=== PATIENT | female | born 1990 | race American Indian/Alaskan Native ===

== ENCOUNTER 2020-08-27 04:24 | Emergency (ER) | payer MEDICAID ==
[2020-08-27 04:52] VITALS: BP 134/81
[2020-08-27] MEDS ORDERED: IBUPROFEN 600 MG TAB PO ONE (07:29)
--- NOTE | 2020-08-27 07:33 | Emergency Department Report ---
ED General Adult HPI - General Chief complaint: Dental/Oral Stated complaint: MOUTH PAIN Time Seen by Provider: 08/27/20 07:28 Source: patient Mode of arrival: Ambulatory Limitations: No Limitations - History of Present Illness Initial comments: Patient complains of right lower lateral incisor or premolar area area toothache for several hours. She denies having a dentist or attempting to see 1. She seems to be referring an acute complaint. She does not report any fever or chills or difficulty with swallowing or opening her mouth. She has no other complaint. -: Gradual, hour(s) Location: mouth, left Radiation: non-radiation Quality: aching Consistency: intermittent Improves with: none Worsens with: none Associated Symptoms: denies other symptoms Treatments Prior to Arrival: none - Related Data Previous Rx's Medication Instructions Recorded Last Taken Type HYDROcodone/APAP 5-325 [[place] 1 each PO Q6HR PRN #5 tablet 08/27/20 Unknown Rx 5/325] Penicillin Vk [Veetids TAB] 250 mg PO QID #30 tablet 08/27/20 Unknown Rx Allergies Allergy/AdvReac Type Severity Reaction Status Date / Time No Known Allergies Allergy Verified 08/27/20 04:29 ED Review of Systems ROS: Stated complaint: MOUTH PAIN Other details as noted in HPI Constitutional: denies: chills, fever Eyes: denies: eye pain, vision change ENT: as per HPI. denies: ear pain, throat pain Respiratory: denies: cough, shortness of breath Cardiovascular: denies: chest pain, palpitations Endocrine: no symptoms reported Gastrointestinal: denies: abdominal pain, nausea, diarrhea Genitourinary: denies: urgency, dysuria Musculoskeletal: denies: back pain, arthralgia Skin: denies: rash, lesions Neurological: denies: headache, weakness, paresthesias Psychiatric: denies: anxiety, depression Hematological/Lymphatic: denies: easy bleeding, easy bruising ED Past Medical Hx - Past Medical History Previous Medical History?: Yes Hx Asthma: Yes - Surgical History Past Surgical History?: No - Social History Smoking Status: Never Smoker Substance Use Type: None - Medications Home Medications: Home Medications Medication Instructions Recorded Confirmed Last Taken Type HYDROcodone/APAP 5-325 [[place] 1 each PO Q6HR PRN #5 tablet 08/27/20 Unknown Rx 5/325] Penicillin Vk [Veetids TAB] 250 mg PO QID #30 tablet 08/27/20 Unknown Rx ED Physical Exam - General Limitations: No Limitations General appearance: alert, in no apparent distress - Head Head exam: Present: atraumatic, normocephalic - Eye Eye exam: Present: normal appearance - ENT ENT exam: Present: mucous membranes moist, other (Probably tooth #4 and 5 are grossly eroded. There is minimal gingival reaction there is no abscess formation) - Neck Neck exam: Present: normal inspection. Absent: tenderness, meningismus - Respiratory Respiratory exam: Absent: respiratory distress - Cardiovascular Cardiovascular Exam: Present: regular rate. Absent: gallop - GI/Abdominal GI/Abdominal exam: Present: normal bowel sounds. Absent: distended - Extremities Exam Extremities exam: Present: normal inspection - Back Exam Back exam: Present: normal inspection - Neurological Exam Neurological exam: Present: alert, oriented X3, CN II-XII intact. Absent: motor sensory deficit - Psychiatric Psychiatric exam: Present: normal affect, normal mood - Skin Skin exam: Present: warm, dry, intact, normal color. Absent: rash ED Course Vital Signs 08/27/20 04:33 Temperature 98.2 F Pulse Rate 65 Respiratory 16 Rate Blood Pressure 134/81 O2 Sat by Pulse 100 Oximetry Critical care attestation.: If time is entered above; I have spent that time in minutes in the direct care of this critically ill patient, excluding procedure time. ED Disposition Clinical Impression: Dentalgia, Gingivitis Disposition: DC-01 TO HOME OR SELFCARE Is pt being admited?: No Does the pt Need Aspirin: No Condition: Stable Instructions: Preventive Dental Care, Adult Additional Instructions: See dentist regarding further care. [facility] information provided. Rx as directed. Prescriptions: HYDROcodone/APAP 5-325 [[place] 5/325] 1 each PO Q6HR PRN #5 tablet PRN Reason: Pain Penicillin Vk [Veetids TAB] 250 mg PO QID #30 tablet Referrals: JAVIER BARDALES MD [Primary Care Provider] - 3-[address] [facility] [Provider Group] - 3-5 Days Time of Disposition: 07:36
== END 2020-08-27 08:44 | disposition home or self-care (01) ==
LOC: ED 04:24
DX: K08.89 Other specified disorders of teeth and supporting structures (principal); K05.10 Chronic gingivitis, plaque induced; J45.909 Unspecified asthma, uncomplicated; Z79.899 Other long term (current) drug therapy
CPT/HCPCS: 99282

== ENCOUNTER 2020-10-31 22:07 | Emergency (ER) | payer MEDICAID ==
[2020-11-01] MEDS ORDERED: dexAMETHasone 4 MG/ML VIAL PO ONE (06:14)
[2020-11-01] MEDS ORDERED: PENICILLIN G BENZATHINE 1.2 MILLION UNIT/2 ML INJ IM ONE (06:14)
[2020-11-01] MEDS ORDERED: ACETAMINOPEN W/CODEINE 120-12MG ORAL LIQD 5 ML PO STA (06:15)
--- NOTE | 2020-11-01 07:37 | Emergency Department Report ---
- General Chief Complaint: Dental/Oral Stated Complaint: MOUTH/THROAT PAIN/SWELLING Time Seen by Provider: 11/01/20 06:14 Source: patient Mode of arrival: Ambulatory Limitations: No Limitations - History of Present Illness MD Complaint: sore throat, rhinorrhea, nasal congestion -: Gradual Severity: mild, moderate Quality: dull, aching Consistency: constant Context: sick contacts Associated Symptoms: myalgias, sore throat. denies: diaphoresis, headache, chest pain, shortness of breath, abdominal pain, nausea, confusion, right sweats - Related Data Previous Rx's Medication Instructions Recorded Last Taken Type HYDROcodone/APAP 5-325 [[place] 1 each PO Q6HR PRN #5 tablet 08/27/20 Unknown Rx 5/325] Penicillin Vk [Veetids TAB] 250 mg PO QID #30 tablet 08/27/20 Unknown Rx Chlorhexidine Mouthwash [Peridex] 15 ml MM BID #1 bottle 11/01/20 Unknown Rx Lidocaine Viscous 2% 5 ml MM Q3H PRN #120 udc 11/01/20 Unknown Rx Allergies Allergy/AdvReac Type Severity Reaction Status Date / Time No Known Allergies Allergy Verified 08/27/20 04:29 ED Review of Systems ROS: Stated complaint: MOUTH/THROAT PAIN/SWELLING Other details as noted in HPI Comment: All other systems reviewed and negative ED Past Medical Hx - Past Medical History Previous Medical History?: Yes Hx Asthma: Yes - Surgical History Past Surgical History?: No - Social History Smoking Status: Current Every Day Smoker Substance Use Type: None - Medications Home Medications: Home Medications Medication Instructions Recorded Confirmed Last Taken Type HYDROcodone/APAP 5-325 [[place] 1 each PO Q6HR PRN #5 tablet 08/27/20 Unknown Rx 5/325] Penicillin Vk [Veetids TAB] 250 mg PO QID #30 tablet 08/27/20 Unknown Rx Chlorhexidine Mouthwash [Peridex] 15 ml MM BID #1 bottle 11/01/20 Unknown Rx Lidocaine Viscous 2% 5 ml MM Q3H PRN #120 udc 11/01/20 Unknown Rx ED Physical Exam - General Limitations: No Limitations General appearance: alert, in no apparent distress - Head Head exam: Present: atraumatic, normocephalic - Eye Eye exam: Present: normal appearance, PERRL, EOMI - ENT ENT exam: Present: mucous membranes moist, other (Erythema to the right pharynx in the right tonsil. Airway is patent but no no drooling. No muffling of the v oice. Dentition has few caries scattered tongue is normal size) - Neck Neck exam: Present: normal inspection, tenderness (No submental swelling to suggest any Briana's lymphadenopathy is appreciated on the right side) - Respiratory Respiratory exam: Present: normal lung sounds bilaterally. Absent: respiratory distress, wheezes, rales - Cardiovascular Cardiovascular Exam: Present: regular rate, normal rhythm. Absent: systolic murmur, diastolic murmur, rubs, gallop - GI/Abdominal GI/Abdominal exam: Present: soft, normal bowel sounds. Absent: distended, tenderness - Extremities Exam Extremities exam: Present: normal inspection, full ROM. Absent: normal capillary refill, pedal edema - Back Exam Back exam: Present: normal inspection. Absent: CVA tenderness (R), CVA tenderness (L) - Neurological Exam Neurological exam: Present: alert, oriented X3, CN II-XII intact, normal gait - Psychiatric Psychiatric exam: Present: normal affect, normal mood - Skin Skin exam: Present: warm, dry, intact, normal color. Absent: rash ED Course Vital Signs 11/01/20 11/01/20 00:54 06:40 Temperature 99.0 F Pulse Rate 84 Respiratory 14 18 Rate Blood Pressure 130/90 O2 Sat by Pulse 99 Oximetry Critical care attestation.: If time is entered above; I have spent that time in minutes in the direct care of this critically ill patient, excluding procedure time. ED Disposition Clinical Impression: Tonsillitis Disposition: DC-01 TO HOME OR SELFCARE Is pt being admited?: No Does the pt Need Aspirin: No Condition: Stable Instructions: Tonsillitis Prescriptions: Lidocaine Viscous 2% 5 ml MM Q3H PRN #120 udc PRN Reason: Pain, Moderate (4-6) Chlorhexidine Mouthwash [Peridex] 15 ml MM BID #1 bottle Referrals: PRIMARY CARE,MD [Primary Care Provider] - 3-5 Days
[2020-11-01 07:45] VITALS: BP 123/70
== END 2020-11-01 07:40 | disposition home or self-care (01) ==
LOC: ED 22:07
DX: J03.90 Acute tonsillitis, unspecified (principal); J45.909 Unspecified asthma, uncomplicated; F17.200 Nicotine dependence, unspecified, uncomplicated; Z79.899 Other long term (current) drug therapy
CPT/HCPCS: 87116; 87430; 96372; 99283; J0561; J1100

== ENCOUNTER 2021-05-06 20:35 | Emergency (ER) | payer MEDICAID | END 2021-05-07 06:10 | disposition left against medical advice (07) | LOC: ED 20:35 | DX: M25.579 Pain in unspecified ankle and joints of unspecified foot (principal); Z53.21 Procedure and treatment not carried out due to patient leaving prior to being seen by health care provider ==